=== PATIENT | female | born 1980 | race Caucasian/White ===

== ENCOUNTER 2017-11-24 07:00 | Inpatient (IN) | payer OTHER ==
[2017-11-24] MEDS ORDERED: ELECTROLYTE-148 SOLN 500 ML IV SCH (07:30)
[2017-11-24] MEDS ORDERED: ELECTROLYTE-148 SOLN 1,000 ML IV SCH (08:00)
[2017-11-24 08:05] VITALS: BMI 33.9
[2017-11-24] MEDS ORDERED: CITRIC ACID/SODIUM CITRATE 30 ML UNIT-DOSE CUP PO ONE (08:14)
[2017-11-24 08:37] LABS: BASO % 0.7 % (0-2.0); EOS % 0.5 % (0-4.5); HEMATOCRIT 37.3 % (32.4-45.2); HEMOGLOBIN 12.7 GM/dL (10.7-15.3); LYMPH % 17.3 % (8-40); MCH 31.9 pg (25.7-33.7); MEAN CELL VOLUME 93.6 fl (80-96); MEAN PLT VOLUME 9.8 fl (7.5-11.1); MONO % 5.7 % (3.8-10.2); NEUT % 75.8 % (42.8-82.8); PLATELET COUNT 194 K/MM3 (134-434); RBC 3.99 M/mm3 (3.60-5.2); WHITE BLOOD COUNT 9.4 K/mm3 (4.0-10.0)
[2017-11-24 08:53] LABS: INR 0.84 (0.82-1.09); PROTHROMBIN TIME (PATIENT) 9.5 SEC (9.7-13.0)
[2017-11-24 08:56] LABS: ACTIVATED PTT 23.1 SECONDS (26.9-34.4)
[2017-11-24 09:05] LABS: ANION GAP 13 (8-16); BLOOD UREA NITROGEN 11 mg/dL (7-18); CALCIUM 8.2 mg/dL (8.5-10.1); CHLORIDE 105 mmol/L (98-107); CO2 20 mmol/L (21-32); CREATININE 0.6 mg/dL (0.55-1.02); GLUCOSE,RANDOM 93 mg/dL (74-106); POTASSIUM 4.2 mmol/L (3.5-5.1); SODIUM 138 mmol/L (136-145)
[2017-11-24] MEDS ORDERED: OXYTOCIN 20 UNITS in 0.9% NS 20 UNIT/1,000 ML INFUS.BAG IV ONE (09:06)
--- NOTE | 2017-11-24 10:16 | HP ---
Past Medical History - Primary Care Physician PCP:: Ben Finn - Admission Chief Complaint: 37 weeks, previousc/s ,labor History of Present Illness: 37 weeks , previous c/s , labor. cx 4 cm 80 vx -2 mi, fhr cat 1, regular contraction, , requesting repeat c/s and BTL, aware BTL is permenant and ahs small failure risks and risks of ectopic History Source: Patient Limitations to Obtaining History: No Limitations - Past Medical History ...: 3 ...Para: 2 ...Term: 1 ...: 1 ...Spon : 0 ...Induced : 0 ...Multiple Gestation: 0 ...LMP: 03/20/17 ... Weeks Gestation by Dates: 37.4 ...EDC by Dates: 12/25/17 ...EDC by Sono: 12/11/17 Additional OB History: previous hx of abruptio Heme/Onc: Yes: Anemia - Past Surgical History Past Surgical History: Yes: Hx Myomectomy: No Hx Transabdominal Cerclage: No - Smoking History Smoking history: Never smoked Have you smoked in the past 12 months: No - Alcohol/Substance Use Hx Alcohol Use: No - Social History Usual Living Arrangement: Yes: With Spouse History of Recent Travel: No Home Medications - Allergies Allergies/Adverse Reactions: Allergies Allergy/AdvReac Type Severity Reaction Status Date / Time No Known Allergies Allergy Verified 11/24/17 07:45 - Home Medications Home Medications: Ambulatory Orders Vit/Iron Fum/Folic AC [ Tablet] 1 tab PO DAILY 11/23/17 Review of Systems - Review of Systems Constitutional: reports: No Symptoms Eyes: reports: No Symptoms HENT: reports: No Symptoms Neck: reports: No Symptoms Respiratory: reports: No Symptoms Gastrointestinal: reports: No Symptoms Genitourinary: reports: No Symptoms Breasts: reports: No Symptoms Reported Musculoskeletal: reports: No Symptoms Integumentary: reports: No Symptoms Neurological: reports: No Symptoms Endocrine: reports: No Symptoms Psychiatric: reports: No Symptoms Physical Exam - Maternity Vital Signs: Vital Signs Temperature 98.0 F 11/24/17 09:34 Pulse Rate 87 11/24/17 09:34 Respiratory Rate 20 11/24/17 09:34 Blood Pressure 129/86 11/24/17 09:34 O2 Sat by Pulse Oximetry (%) Constitutional: Yes: Well Nourished, No Distress, Calm Eyes: Yes: WNL, Conjunctiva Clear, EOM Intact HENT: Yes: WNL, Atraumatic, Normocephalic Neck: Yes: WNL, Supple, Trachea Midline Cardiovascular: Yes: WNL, Regular Rate and Rhythm Breast(s): Yes: WNL - Abdominal Exam/OB Fundal Height: 40 Number of Fetuses: Single Presentation: Vertex Contractions: Yes Regularity: Regular Intensity: Mod/Strong Monitor Mode: External Heart Rate Location: [facility] Category: I Accelerations: Uniform Decelerations: None - Vaginal Exam/OB Speculum Exam: No Dilatation (cm): 4 cm Effacement (%): 80 Amniotic Membrane Status: Bulging Presentation: Vertex/Position Station: -2 - Physical Exam Musculoskeletal: Yes: WNL Extremities: Yes: WNL Edema: Yes Edema: LLE: Trace, RLE: Trace Deep Tendon Reflex Grade: Normal +2 - Labs Lab Results: CBC, BMP 11/24/17 08:16 11/24/17 08:16 Hemorrhage Risk Assessment - Risk Factors Medium Risk Factors: Yes: Prior , uterine surgery,or multiple laparotomies Risk Score: 1 Risk Level: Medium Risk Problem List - Problems (1) with 37 weeks completed gestation Code(s): Z3A.37 - 37 WEEKS GESTATION OF (2) Previous section complicating Code(s): O34.219 - MATERNAL CARE FOR UNSP TYPE SCAR FROM PREVIOUS DEL (3) Admission for sterilization Code(s): Z30.2 - ENCOUNTER FOR STERILIZATION (4) Labor established Code(s): ACC0554 - Assessment/Plan plan admit, requesting repeat c/s and BTL, rba discussed
[2017-11-24] MEDS ORDERED: BUPIVACAINE 0.75% IN DEXTROSE/PF 2ML AMPULE NR ONE (10:24)
[2017-11-24] MEDS ORDERED: morphine SULFATE/Preservative Free 0.5 MG/ML (1cc Syringe) ONE (10:24)
[2017-11-24] MEDS ORDERED: morphine SULFATE/Preservative Free 0.5 MG/ML (1cc Syringe) SPIN ONE (10:30)
[2017-11-24] MEDS ORDERED: ceFAZolin SODIUM 1 GM VIAL ONE (10:32)
[2017-11-24] MEDS ORDERED: ePHEDrine SULFATE 50 MG/1 ML AMPULE ONE (10:38)
[2017-11-24] MEDS ORDERED: OXYTOCIN 10 UNITS/ML VIAL ONE (10:42)
[2017-11-24] MEDS ORDERED: ACETAMINOPHEN 325 MG TABLET (FP) PO PRN (10:51)
[2017-11-24] MEDS ORDERED: ONDANSETRON 4 MG/2 ML VIAL IVPUSH PRN (10:51)
[2017-11-24] MEDS ORDERED: IBUPROFEN 800 MG/8 ML IJ IVPB PRN (11:20)
[2017-11-24] MEDS ORDERED: WITCH HAZEL 50% (TUCKS) 40 PAD/JAR PAD TP PRN (11:20)
[2017-11-24] MEDS ORDERED: IBUPROFEN 600 MG TABLET (FP) PO PRN (11:20)
[2017-11-24] MEDS ORDERED: BENZOCAINE 20% 57 GM BOTTLE TP PRN (11:20)
[2017-11-24] MEDS ORDERED: oxyCODONE HCL 5 MG TABLET PO PRN (11:20)
[2017-11-24] MEDS ORDERED: METHYLERGONOVINE MALEATE 0.2 MG/1 ML AMP IM PRN (11:20)
[2017-11-24] MEDS ORDERED: BENZOCAINE 28 GM HEMORRHOIDAL OINTMENT PR PRN (11:20)
[2017-11-24] MEDS ORDERED: diphenhydrAMINE HCL 25 MG CAPSULE (FP) PO PRN (11:20)
[2017-11-24] MEDS ORDERED: OXYTOCIN 20 UNITS in 0.9% NS 20 UNIT/1,000 ML INFUS.BAG IV SCH ×2 (11:30→12:45)
[2017-11-24] MEDS ORDERED: DEXTROSE 5%-LACTATED RINGERS 1,000 ML IV SCH (11:30)
--- NOTE | 2017-11-24 12:51 | OP ---
DATE OF OPERATION: 11/24/2017 PREOPERATIVE DIAGNOSIS: 37.4 weeks' gestation, previous section, request repeat section and tubal ligation, advanced maternal age. POSTOPERATIVE DIAGNOSIS: 37.4 weeks' gestation, previous section, request repeat section and tubal ligation, advanced maternal age. PROCEDURE: Repeat low segment transverse section. SURGEON: Madelyn Finn MD STRADDLE BUG: BRONWYN Milton ANESTHESIA: Spinal. ANESTHESIOLOGIST: Dr. Bowser ESTIMATED BLOOD LOSS: 500 mL. DESCRIPTION OF PROCEDURE: The patient was taken to the operating room under adequate spinal anesthesia. Abdomen and perineum was prepped and draped. Then a Pfannenstiel abdominal skin incision was made. Abdominal wall was cut layer by layer until the peritoneum was exposed and incised. Upon entering the abdominal cavity, lower uterine segment was identified, and uterovesical fold of peritoneum established. Bladder was pushed down. Then with the lower blade of the Maldonado retractor in the pelvis, a low transverse uterine incision was made. Incision was extended laterally. Amniotic sac was entered. Clear fluid. Head delivered from right occiput posterior position. Nasopharynx was suctioned, and live baby was delivered without any difficulty. Placenta was delivered manually. Uterine cavity was cleaned of all remaining tissue. Uterine incision was closed in 2 layers, the first layer with 0 Biosyn continuous suture, the second layer with 0 Biosyn imbricating the first layer. Bladder flap was closed with 0 Biosyn continuous suture. Both tubes and ovaries were checked and normal. No active bleeding was seen. Then the right tube was grasped with Radha clamp. Right tube was doubly tied with 2-0 plain. A portion of the tube was removed, and the salpinx was cauterized. The same procedure repeated for opposite tube. Pelvic cavity several times irrigated. No active bleeding was seen. All of the lap pad, sponge, and instrument counts were correct. Peritoneum was closed with 0 Biosyn continuous suture. Muscles were brought together with interrupted sutures of 0 Biosyn Fascia was closed with 0 Biosyn continuous suture. Subcutaneous fat interrupted suture of 0 Biosyn and the skin was closed with becky. The patient tolerated the procedure well and left the OR in good condition. MADELYN FINN M.D. [id number]
[2017-11-24] MEDS: CEFAZOLIN 1 GM/D5W 1 GM/50 ML BAG IVPB SCH (17:37)
[2017-11-25] MEDS: CEFAZOLIN 1 GM/D5W 1 GM/50 ML BAG IVPB SCH (02:00)
[2017-11-25] MEDS: SIMETHICONE 80 MG TAB.CHEW (FP) PO PRN ×3 (07:46→23:33)
[2017-11-25] MEDS: oxyCODONE HCL 5 MG TABLET PO PRN ×3 (07:46→23:34)
[2017-11-25] MEDS: IBUPROFEN 600 MG TABLET (FP) PO PRN ×3 (07:47→23:34)
[2017-11-25 08:19] LABS: BASO % 0.2 % (0-2.0); EOS % 0.1 % (0-4.5); HEMATOCRIT 32.5 % (32.4-45.2); HEMOGLOBIN 11.2 GM/dL (10.7-15.3); MCHC 34.4 g/dl (32.0-36.0); MEAN CELL VOLUME 93.1 fl (80-96); MEAN PLT VOLUME 9.3 fl (7.5-11.1); MONO % 5.9 % (3.8-10.2); NEUT % 78.8 % (42.8-82.8); PLATELET COUNT 178 K/MM3 (134-434); RBC 3.49 M/mm3 (3.60-5.2); RDW 14.5 % (11.6-15.6); WHITE BLOOD COUNT 10.5 K/mm3 (4.0-10.0)
[2017-11-25] MEDS: ENOXAPARIN NA (PORCINE) 40 MG/0.4 ML DISP.SYRIN SQ SCH (09:47)
[2017-11-25] MEDS ORDERED: FLU VACC QS2017-18 36MOS UP/PF 60 MCG/0.5 ML SYRINGE IM ONE (10:00)
[2017-11-25] MEDS ORDERED: DIPHTH,PERTUSS(ACELL),TET 0.5 ML DISP.SYRIN IM ONE (10:00)
--- NOTE | 2017-11-25 11:03 | PN ---
Post Progress Note - Subjective Subjective: c/o pain 02/02 & heavy bleeding not voided yet after lezama was taken out Post Day: 1 Type of Delivery: Repeat C/S Vital Signs: Vital Signs Temperature 98.2 F 11/25/17 08:09 Pulse Rate 84 11/25/17 08:09 Respiratory Rate 18 11/25/17 10:07 Blood Pressure 116/65 11/25/17 08:09 O2 Sat by Pulse Oximetry (%) 100 11/24/17 12:30 Breast Exam: Yes: Soft, Other (Bf ). No: Engorged Uterus: Yes: Fundus Firm, Fundus below umbilicus, Non-tender Incision: Yes: Dressing dry and intact. No: Redness, Oozing Abdomen/GI: Yes: Abdomen soft (bs active), Tender, Tolerating PO (fluids). No: Abdominal Distention, Passing flatus Lochia: Yes: Rubra Lochia, amount: Moderate Extremities: Yes: Calves non-tender Perineum: Yes: Intact Activity: Other (not oob yet ) - Labs Labs: CBC WBC 10.5 K/mm3 (4.0-10.0) H 11/25/17 07:30 RBC 3.49 M/mm3 (3.60-5.2) L 11/25/17 07:30 Hgb 11.2 GM/dL (10.7-15.3) D 11/25/17 07:30 Hct 32.5 % (32.4-45.2) 11/25/17 07:30 MCV 93.1 fl (80-96) 11/25/17 07:30 MCH 32.0 pg (25.7-33.7) 11/25/17 07:30 MCHC 34.4 g/dl (32.0-36.0) 11/25/17 07:30 RDW 14.5 % (11.6-15.6) 11/25/17 07:30 Plt Count 178 K/MM3 (134-434) 11/25/17 07:30 MPV 9.3 fl (7.5-11.1) 11/25/17 07:30 Neutrophils % 78.8 % (42.8-82.8) 11/25/17 07:30 Lymphocytes % 15.0 % (8-40) 11/25/17 07:30 Monocytes % 5.9 % (3.8-10.2) 11/25/17 07:30 Eosinophils % 0.1 % (0-4.5) 11/25/17 07:30 Basophils % 0.2 % (0-2.0) 11/25/17 07:30 Other Findings, Remarks: RS cta, shallow breathing i/o adequate Problem List - Problems (1) delivery delivered Code(s): O82 - ENCOUNTER FOR DELIVERY WITHOUT INDICATION Assessment/Plan stable. plan ct po care encourage ambulation, po fluids , deep breathing
[2017-11-25] MEDS ORDERED: BISACODYL 10 MG SUPP.RECT RC PRN (11:20)
--- NOTE | 2017-11-25 13:57 | PN ---
Progress Note, Physician Chief Complaint: day #1 s/p csection with duramorph - Current Medication List Current Medications: Active Medications Acetaminophen (Tylenol -) 650 mg PO Q4H PRN PRN Reason: PAIN Benzocaine (Americaine 20% [place] -) 1 spray TP PRN PRN PRN Reason: Pain - Topical Benzocaine (Americaine Ointment -) 1 applic VT PRN PRN PRN Reason: Pain - Topical Bisacodyl (Dulcolax Suppository -) 10 mg RC PRN PRN PRN Reason: CONSTIPATION Diphenhydramine HCl (Benadryl Injection -) 25 mg IVPUSH Q4H PRN PRN Reason: Pruritis Last Admin: 11/24/17 17:45 Dose: 25 mg Diphenhydramine HCl (Benadryl -) 25 mg PO Q8H PRN PRN Reason: FOR ITCHING Diphtheria/Tetanus/Acell Pertussis (Boostrix -) 0.5 ml IM .ONCE ONE Stop: 11/25/17 10:01 Last Admin: 11/25/17 09:47 Dose: 0.5 ml Enoxaparin Sodium (Lovenox -) 40 mg SQ DAILY GERALD Last Admin: 11/25/17 09:47 Dose: 40 mg Cefazolin Sodium (Ancef 1 Gm Premixed Ivpb -) 1 gm in 50 mls @ 100 mls/hr IVPB Q8H-IV GERALD Stop: 11/25/17 02:29 Last Admin: 11/25/17 02:00 Dose: 100 mls/hr Oxytocin/Sodium Chloride (Normal Saline+20 Units Oxytocin -) 20 unit in 1,000 mls @ 125 mls/hr IV ASDIR GERALD Ibuprofen (Motrin -) 600 mg PO Q4H PRN PRN Reason: PAIN LEVEL 1-5 Last Admin: 11/25/17 07:47 Dose: 600 mg Ibuprofen (Motrin -) 600 mg PO Q4H PRN PRN Reason: PAIN LEVEL 1 - 3 Ibuprofen (Caldolor Injection -) 800 mg IVPB Q6H PRN PRN Reason: PAIN > 5 if PO not effective. Influenza Virus Vaccine Quadrival (Fluarix Quad [id number] Syringe) 60 mcg IM .ONCE ONE Stop: 11/25/17 10:01 Last Admin: 11/25/17 09:49 Dose: 60 mcg Methylergonovine Maleate (Methergine Injection -) 0.2 mg IM Q4H PRN PRN Reason: EXCESSIVE BLEEDING Ondansetron HCl (Zofran Injection) 4 mg IVPUSH Q4H PRN PRN Reason: NAUSEA Oxycodone HCl (Roxicodone -) 5 mg PO Q4H PRN PRN Reason: PAIN LEVEL 4 - 6 Last Admin: 11/25/17 07:46 Dose: 5 mg Oxycodone HCl (Roxicodone -) 10 mg PO Q4H PRN PRN Reason: PAIN LEVEL 7 - 10 Senna/Docusate Sodium (Pericolace -) 2 tablet PO HS PRN PRN Reason: CONSTIPATION Simethicone (Mylicon -) 80 mg PO Q4H PRN PRN Reason: GAS Last Admin: 11/25/17 07:46 Dose: 80 mg Witch Jojo/Glycerin (Tucks Pads -) 1 pad TP PRN PRN PRN Reason: Pain - Topical - Objective Vital Signs: Vital Signs Temperature 98.2 F 11/25/17 08:09 Pulse Rate 84 11/25/17 08:09 Respiratory Rate 18 11/25/17 10:07 Blood Pressure 116/65 11/25/17 08:09 O2 Sat by Pulse Oximetry (%) 100 11/24/17 12:30 Labs: CBC, BMP 11/25/17 07:30 11/24/17 08:16 INR, PTT INR 0.84 (0.82-1.09) L 11/24/17 08:16 Assessment/Plan Doing well today. No back pain, RIOS, just minor incisional pain.
--- NOTE | 2017-11-26 02:46 | PN ---
Post Progress Note - Subjective Subjective: 37 yo Para 3 status post repeat , seen and evaluated. Doing well Post Day: 2 Type of Delivery: Repeat C/S Vital Signs: Vital Signs Temperature 98.4 F 11/25/17 22:00 Pulse Rate 93 H 11/25/17 22:00 Respiratory Rate 18 11/25/17 22:00 Blood Pressure 114/72 11/25/17 22:00 O2 Sat by Pulse Oximetry (%) 100 11/24/17 12:30 Breast Exam: Yes: Soft Uterus: Yes: Fundus Firm Incision: Yes: Dressing dry and intact Abdomen/GI: Yes: Abdomen soft, Tolerating PO Lochia: Yes: Rubra Lochia, amount: Small Extremities: Yes: Calves non-tender Activity: Ambulating - Labs Labs: CBC WBC 10.5 K/mm3 (4.0-10.0) H 11/25/17 07:30 RBC 3.49 M/mm3 (3.60-5.2) L 11/25/17 07:30 Hgb 11.2 GM/dL (10.7-15.3) D 11/25/17 07:30 Hct 32.5 % (32.4-45.2) 11/25/17 07:30 MCV 93.1 fl (80-96) 11/25/17 07:30 MCH 32.0 pg (25.7-33.7) 11/25/17 07:30 MCHC 34.4 g/dl (32.0-36.0) 11/25/17 07:30 RDW 14.5 % (11.6-15.6) 11/25/17 07:30 Plt Count 178 K/MM3 (134-434) 11/25/17 07:30 MPV 9.3 fl (7.5-11.1) 11/25/17 07:30 Neutrophils % 78.8 % (42.8-82.8) 11/25/17 07:30 Lymphocytes % 15.0 % (8-40) 11/25/17 07:30 Monocytes % 5.9 % (3.8-10.2) 11/25/17 07:30 Eosinophils % 0.1 % (0-4.5) 11/25/17 07:30 Basophils % 0.2 % (0-2.0) 11/25/17 07:30 Assessment/Plan Status post repeat Ambulation Analgesia as needed Continue routine post op care
[2017-11-26] MEDS: ENOXAPARIN NA (PORCINE) 40 MG/0.4 ML DISP.SYRIN SQ SCH (10:16)
[2017-11-26] MEDS: SIMETHICONE 80 MG TAB.CHEW (FP) PO PRN (12:36)
[2017-11-26] MEDS: oxyCODONE HCL 5 MG TABLET PO PRN ×2 (12:36→20:56)
[2017-11-26] MEDS: IBUPROFEN 600 MG TABLET (FP) PO PRN ×2 (12:36→20:55)
[2017-11-26] MEDS ORDERED: SENNOSIDES/DOCUSATE COMBO (SENNA PLUS) TABLET (UD) PO PRN (22:00)
[2017-11-27 07:50] LABS: BASO % 0.5 % (0-2.0); EOS % 2.3 % (0-4.5); HEMATOCRIT 31.3 % (32.4-45.2); HEMOGLOBIN 10.7 GM/dL (10.7-15.3); LYMPH % 21.3 % (8-40); MCH 32.2 pg (25.7-33.7); MCHC 34.3 g/dl (32.0-36.0); MEAN CELL VOLUME 93.7 fl (80-96); MEAN PLT VOLUME 9.1 fl (7.5-11.1); MONO % 7.5 % (3.8-10.2); NEUT % 68.4 % (42.8-82.8); PLATELET COUNT 201 K/MM3 (134-434); RBC 3.34 M/mm3 (3.60-5.2); RDW 14.1 % (11.6-15.6); WHITE BLOOD COUNT 8.1 K/mm3 (4.0-10.0)
[2017-11-27] MEDS: ENOXAPARIN NA (PORCINE) 40 MG/0.4 ML DISP.SYRIN SQ SCH (10:37)
[2017-11-27 12:28] VITALS: BP 127/73; PULSE 63; TEMP 98.1
--- NOTE | 2017-11-27 22:35 | DS ---
Physical Exam-ORTHOPAEDIC NURSE Vital Signs: Vital Signs Temperature 98.1 F 11/27/17 10:00 Pulse Rate 63 11/27/17 10:00 Respiratory Rate 18 11/27/17 10:00 Blood Pressure 127/73 11/27/17 10:00 O2 Sat by Pulse Oximetry (%) 100 11/24/17 12:30 Constitutional: Yes: Well Nourished Eyes: Yes: Conjunctiva Clear HENT: Yes: Atraumatic Neck: Yes: Supple Cardiovascular: Yes: Regular Rate and Rhythm Respiratory: Yes: Regular Gastrointestinal: Yes: Normal Bowel Sounds Vaginal Exam: Yes: Normal Cervix: Yes: Normal Uterus: Yes: Firm ....Post : Yes: Uterus firm, Moderate lochia serosa Breast(s): Yes: WNL Neurological: Yes: Alert, Oriented ...Motor Strength: WNL Psychiatric: Yes: Alert, Oriented Labs: CBC, BMP 11/27/17 07:16 11/24/17 08:16 Delivery - Delivery Type of Anesthesia: Spinal Episiotomy/Laceration: None EBL (cc): 500 Delivery, Single - Stages of Labor Date 1st Stage Initiatied: 11/24/17 Time 1st Stage Initiated: 00:00 Date of Delivery: 11/24/17 Time of Delivery: 10:43 Time Placenta Delivered: 10:44 - 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 care 1 week Referrals: Ben Finn MD [Staff Physician] - Disposition: HOME - Home Medications Comprehensive Discharge Medication List: Ambulatory Orders Vit/Iron Fum/Folic AC [ Tablet] 1 tab PO DAILY 11/23/17 Ibuprofen [Motrin -] 600 mg PO QID #28 tablet 11/26/17
--- NOTE | 2017-12-02 10:56 | PATH ---
Surgical Pathology Report Patient Name: RUDY STAUFFER [facility]. Rec. 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 Specimen(s) Received A: PLACENTA B: PORTION LEFT TUBE C: PORTION RIGHT TUBE Clinical History , previous 2006 Final Diagnosis A. PLACENTA: MATURE THIRD TRIMESTER PLACENTA. THREE-VESSEL CORD. MEMBRANES WITH NO DIAGNOSTIC ABNORMALITIES B. PORTION LEFT TUBE, RESECTION: COMPLETE CROSS SECTION OF FALLOPIAN TUBE IDENTIFIED. C. PORTION RIGHT TUBE, RESECTION: COMPLETE CROSS SECTION OF FALLOPIAN TUBE IDENTIFIED Electronically Signed Pham Barros M.D. Gross Description A. The specimen is received fresh labeled placenta and is a 449 gram, 28.0 x 15.0 x 1.8 cm. bilobed placenta with attached membranes and umbilical cord. The attached membranes are henley, translucent focal opacities and insert marginally. The umbilical cord measures 23 cm. in length and averages 1.3 cm. in diameter. The cord inserts centrally. No true knots or strictures are identified. Cut surface of the umbilical cord reveals 3 vessels. The surface is mcfadden-blue with minimal fibrin deposition and appropriate caliber vessels. The maternal surface is red-brown with focal defects. Sectioning reveals red-brown, spongy parenchyma. No lesions are identified. Cash On Delivery Clerk sections are submitted in three cassettes as follows: 1- membrane rolls and umbilical cord; 2-3- full thickness sections of placenta. B. Received in formalin labeled "portion of left tube," is a 0.8 cm in length portion of fallopian tube. No fimbria are present. The outer surface is henley-trujillo and smooth. Sectioning reveals an unremarkable lumen. Cash On Delivery Clerk sections are submitted in one cassette. C. Received in formalin labeled "portion of right fallopian tube," is a 1.8 cm in length portion of fallopian tube. No fimbria are present. The outer surface is henley-trujillo and smooth. Sectioning reveals unremarkable lumen. Cash On Delivery Clerk sections are submitted in one cassette. /11/30/2017 saudi11/30/2017
== END 2017-11-27 12:00 | disposition home or self-care (01) | DRG 540 ==
LOC: JDEL 07:00 → JLDR 07:30 → J3W 12:34
PROVIDERS: ADMIT Obstetrics & Gynecology; ATTEND Obstetrics & Gynecology
PROC: 10D00Z1 Extraction of Products of Conception, Low, Open Approach (ICD-10-PCS; principal; 2017-11-24)
PROC: 0U570ZZ Destruction of Bilateral Fallopian Tubes, Open Approach (ICD-10-PCS; 2017-11-24)
DX: O34.211 Maternal care for low transverse scar from previous cesarean delivery (principal); O99.013 Anemia complicating pregnancy, third trimester; D64.9 Anemia, unspecified; Z3A.37 37 weeks gestation of pregnancy; Z37.0 Single live birth; Z30.2 Encounter for sterilization
CPT/HCPCS: 36415; 71046-TC-FY; 80048; 85025; 85610; 85730; 86593; 86850; 86900; 86901; 88302-TC; 88307-TC; 90686; 90715; G0008